=== PATIENT | male | born 1965 | race Caucasian/White ===

== ENCOUNTER → 2024-01-08 06:36 | Outpatient (REF) | payer OTHER, SELFPAY ==
[2024-01-08 07:52] LABS: % Eosinophils 3.5 % (0-6); % Immature Granulocytes 0.1 % (0-0.5); % Lymphocytes 50.2 % (20.5-51.1); % Monocytes 8.9 % (1.7-9.3); % Neutrophils 36.3 % (42.2-75.2); Absolute Basophils 0.1 10^3/uL (0-0.2); Absolute Eosinophils 0.2 10^3/uL (0-0.7); Absolute Lymphocytes 3.5 10^3/uL (1.2-3.4); Absolute Monocytes 0.6 10^3/uL (0.1-0.6); Absolute Neutrophils 2.5 10^3/uL (1.4-6.5); Hematocrit 43.4 % (39.0-52.0); Hemoglobin 14.7 g/dL (13.0-18.0); Mean Corp Hgb Conc. 33.9 g/dL (33.0-37.0); Mean Corpuscular Hgb 30.9 pg (27.0-31.0); Mean Corpuscular Volume 91.2 fL (80.0-94.0); Mean Platelet Volume 10.9 fL (7.4-10.4); Nucleated Red Blood Cells % 0 % (-); Platelet Count 221 10^3/uL (130-400); Red Blood Cell Count 4.76 10^6/uL (4.70-6.10); Red Cell Dist. Width 12.5 % (11.5-14.5); White Blood Cell Count 6.9 10^3/uL (4.8-10.8)
[2024-01-08 08:07] LABS: ALT (SGPT) 46 U/L (0-50); AST (SGOT) 33 U/L (17-59); Albumin 4.3 g/dl (3.5-5.0); Alkaline Phosphatase 91 U/L (38-126); Blood Urea Nitrogen 18 mg/dl (9-20); Calcium 9.9 mg/dl (8.4-10.2); Carbon Dioxide 29 mmol/L (22-30); Chloride 106 mmol/L (98-107); Glucose 149 mg/dl (70-99); HDL Cholesterol 75 mg/dl; Iron 178 ug/dl (49-181); LDL Cholesterol, Calculated 74 mg/dl; Magnesium 2.1 mg/dl (1.6-2.3); Phosphorus 4.2 mg/dl (2.5-4.5); Potassium 4.9 mmol/L (3.5-5.1); Sodium 138 mmol/L (135-145); Total Bilirubin 0.7 mg/dl (0.2-1.3); Total Cholesterol 161 mg/dl (50-199); Total Protein 6.7 g/dl (6.3-8.2); Triglyceride 61 mg/dl (10-149); Very Low Density Lipoprotein 12 mg/dl (0-30); eGFR > 60.00
[2024-01-08 08:20] LABS: Vitamin D, 25-OH*** 70.8 ng/mL (30-80)
[2024-01-08 09:09] LABS: Folate 15.8 ng/ml (2.76-20); Vitamin B12 915 pg/ml (239-931)
[2024-01-10 00:46] LABS: Zinc 74.9 ug/dL (60.0-120.0)
[2024-01-11 08:57] LABS: Intact PTH 50.5 pg/ml (13.6-85.8)
[2024-01-11 14:58] LABS: Alpha-Tocopherol 10.2 mg/L (5.5-18.0); Gamma-Tocopherol 0.3 mg/L (0.0-6.0); Retinyl Palmitate <0.02 mg/L (0.00-0.10); Vitamin A (Retinol) 0.47 mg/L (0.30-1.20); Xitamin A Interpretation Normal
[2024-01-12 20:26] LABS: Vitamin B1, Whole Blood 171 nmol/L (70-180)
== END ==
LOC: REG 06:36
PROVIDERS: ATTENDING PHYSICIAN Nurse Practitioner
DX: E11.65 Type 2 diabetes mellitus with hyperglycemia (principal)
CPT/HCPCS: 36415; 80053; 80061; 82248; 82306; 82607; 82728; 82746; 83540; 83735; 83970; 84100; 84425; 84446; 84590; 84630; 85025

== ENCOUNTER → 2024-03-06 11:24 | Outpatient (REF) | payer OTHER, SELFPAY ==
[2024-03-06 12:32] LABS: Urine Albumin Trace (Neg - Trace); Urine Bilirubin 1+ (Negative); Urine Character Clear (Clear); Urine Color Yellow; Urine Glucose Negative (Negative); Urine Ketone 2+ (Negative); Urine Leukocyte Negative (Negative); Urine Nitrite Negative (Negative); Urine Occult Blood Negative (Negative); Urine Specific Gravity 1.025 (<1.030); Urine Urobilinogen Negative (Neg - 1+)
[2024-03-06 13:48] LABS: % Basophils 0.5 % (0-2); % Eosinophils 1.2 % (0-6); % Immature Granulocytes 0.2 % (0-0.5); % Neutrophils 30.1 % (42.2-75.2); Absolute Eosinophils 0.1 10^3/uL (0-0.7); Absolute Lymphocytes 3.7 10^3/uL (1.2-3.4); Absolute Monocytes 0.8 10^3/uL (0.1-0.6); Hematocrit 42.3 % (39.0-52.0); Hemoglobin 14.5 g/dL (13.0-18.0); Mean Corp Hgb Conc. 34.3 g/dL (33.0-37.0); Mean Corpuscular Hgb 31.2 pg (27.0-31.0); Mean Platelet Volume 11.3 fL (7.4-10.4); Nucleated Red Blood Cells % 0 % (-); Platelet Count 230 10^3/uL (130-400); Red Blood Cell Count 4.65 10^6/uL (4.70-6.10); White Blood Cell Count 6.6 10^3/uL (4.8-10.8)
[2024-03-06 14:12] LABS: ALT (SGPT) 32 U/L (0-50); AST (SGOT) 24 U/L (17-59); Albumin 4.5 g/dl (3.5-5.0); Alkaline Phosphatase 96 U/L (38-126); Blood Urea Nitrogen 15 mg/dl (9-20); Calcium 9.8 mg/dl (8.4-10.2); Carbon Dioxide 22 mmol/L (22-30); Chloride 107 mmol/L (98-107); Glucose 101 mg/dl (70-99); Potassium 4.4 mmol/L (3.5-5.1); Sodium 141 mmol/L (135-145); Total Bilirubin 0.8 mg/dl (0.2-1.3); Total Protein 7.1 g/dl (6.3-8.2); eGFR > 60.00
[2024-03-06 14:43] LABS: TSH Reflex To Free T4 0.58 uIU/ml (0.47-4.68)
== END ==
LOC: RAD 11:24
PROVIDERS: ATTENDING PHYSICIAN Nurse Practitioner Family
DX: R19.7 Diarrhea, unspecified (principal); K58.2 Mixed irritable bowel syndrome
CPT/HCPCS: 36415; 80053; 81003; 84443; 85025

== ENCOUNTER → 2024-03-07 07:33 | Outpatient (REF) | payer OTHER, SELFPAY | LOC: REG 07:33 | PROVIDERS: ATTENDING PHYSICIAN Nurse Practitioner Family | DX: R19.7 Diarrhea, unspecified (principal); K58.2 Mixed irritable bowel syndrome | CPT/HCPCS: 83993; 87045; 87046; 87077; 87324; 87427; 87449 ==

== ENCOUNTER → 2024-11-18 06:47 | Outpatient (REF) | payer OTHER, SELFPAY ==
[2024-11-18 08:05] LABS: Ionized Calcium 1.25 mMOL/L (1.15-1.33)
[2024-11-18 08:36] LABS: ALT (SGPT) 23 U/L (0-50); AST (SGOT) 24 U/L (17-59); Albumin 4.5 g/dl (3.5-5.0); Alkaline Phosphatase 98 U/L (38-126); Blood Urea Nitrogen 15 mg/dl (9-20); Calcium 9.6 mg/dl (8.4-10.2); Carbon Dioxide 29 mmol/L (22-30); Chloride 101 mmol/L (98-107); Direct Bilirubin 0.3 mg/dl (0.0-0.4); Glucose 158 mg/dl (70-99); HDL Cholesterol 73 mg/dl; Iron 201 ug/dl (49-181); LDL Cholesterol, Calculated 105 mg/dl; Potassium 4.4 mmol/L (3.5-5.1); Sodium 138 mmol/L (135-145); Total Bilirubin 1.1 mg/dl (0.2-1.3); Total Cholesterol 195 mg/dl (50-199); Total Protein 6.5 g/dl (6.3-8.2); Triglyceride 85 mg/dl (10-149); Very Low Density Lipoprotein 17 mg/dl (0-30); eGFR > 60.00
[2024-11-18 08:44] LABS: Vitamin D, 25-OH*** 55.2 ng/mL (30-80)
[2024-11-18 09:37] LABS: Folate 15.7 ng/ml (2.76-20); Vitamin B12 819 pg/ml (239-931)
[2024-11-18 09:40] LABS: Glycohemoglobin (HgbA1c) 6.8 % (4.0-5.6)
[2024-11-18 12:22] LABS: Intact PTH 57.6 pg/ml (13.6-85.8)
[2024-11-20 04:15] LABS: Zinc 70.7 ug/dL (60.0-120.0)
[2024-11-20 23:16] LABS: Alpha-Tocopherol 9.4 mg/L (5.5-18.0); Gamma-Tocopherol 0.3 mg/L (0.0-6.0); Retinyl Palmitate <0.02 mg/L (0.00-0.10); Vitamin A (Retinol) 0.43 mg/L (0.30-1.20); Xitamin A Interpretation Normal
== END ==
LOC: REG 06:47
PROVIDERS: ATTENDING PHYSICIAN Internal Medicine Endocrinology, Diabetes & Metabolism; FAMILY PHYSICIAN Internal Medicine; REFERRING PHYSICIAN Nurse Practitioner Adult Health
DX: E11.9 Type 2 diabetes mellitus without complications (principal); E29.1 Testicular hypofunction; K90.9 Intestinal malabsorption, unspecified; Z98.84 Bariatric surgery status; E66.01 Morbid (severe) obesity due to excess calories; E78.2 Mixed hyperlipidemia; I10 Essential (primary) hypertension; E11.65 Type 2 diabetes mellitus with hyperglycemia; E78.00 Pure hypercholesterolemia, unspecified; G47.33 Obstructive sleep apnea (adult) (pediatric)
CPT/HCPCS: 36415; 80053; 80061; 82248; 82306; 82330; 82607; 82728; 82746; 83036; 83540; 83735; 83970; 84403; 84425; 84446; 84590; 84630